=== PATIENT | male | born 1955 | race Caucasian/White ===

== ENCOUNTER → 2021-01-13 | Outpatient (REF) | payer MEDICARE, OTHER | LOC: M LAB REF 17:27 | PROVIDERS: ATTEND Physician Assistant | DX: D23.39 Other benign neoplasm of skin of other parts of face (principal) | CPT/HCPCS: 11102; 17000; 17003; 88305; G0463 ==

== ENCOUNTER → 2021-04-14 | Outpatient (REF) | payer MEDICARE, OTHER | LOC: M LAB REF 19:12 | PROVIDERS: ATTEND Dermatology | DX: L57.9 Skin changes due to chronic exposure to nonionizing radiation, unspecified (principal); L90.5 Scar conditions and fibrosis of skin ==

== ENCOUNTER → 2023-04-17 | Outpatient (REF) | payer MEDICARE, OTHER | LOC: M SFHCDERM 14:13 | PROVIDERS: ATTEND Physician Assistant | DX: C44.319 Basal cell carcinoma of skin of other parts of face (principal) ==